=== PATIENT | female | born 1985 | race Caucasian/White ===

== ENCOUNTER 2023-11-08 08:56 | Day surgery (SDC) | payer BC ==
[~2023-11-08] VITALS: Ht 165.1 cm; Wt 71.2 kg
--- NOTE | 2023-11-08 08:55 | NUR ---
The patient was brought over to [facility] from the radiology department. The patient ambulated using a steady gait and appeared to tolerate the activity well. Vital signs obtained. Consent signed. Assessment completed. Home medications reconcilled. brought back to be at her bedside. Warm blanket provided. Denies any further needs at this time.
[~2023-11-08 08:56] MED LIST: AMOXICILLIN 8751 TAB PO; DEPO MEDROL40 MG/ML; DEPO-PROVER150 MG/M1; Famotidine 20 MG TAB PO SCH; LR 1,000 ML IV SCH; METRONIDAZOLE500 MG PO; NO HOME MEDICATIONS; NORCO 325 MG-51 TAB PO; NORCO 325 MG-7.1 TAB PO; PHENERGAN 25 TA25 MG PO; PHENERGAN25 MG RC; PREVACID 30MG30 M1 PO; PRISTIQ100 MG PO; PROTONIX 40MG T40 MG; STRATTERA18 MG PO; Scopolamine 1 MG Delivered 3-Day PATCH TD SCH; ZOFRAN ODT4 MG PO
--- NOTE | 2023-11-08 09:25 | NUR ---
The patient was taken via wheelchair to radiology to have further imaging completed. Will continue to monitor the patient when she returns to the unit.
[2023-11-08 10:13] VITALS: BP 106/76; PULSE 87; TEMP 98.3
[2023-11-08] MEDS ORDERED: fentaNYL 50 MCG/ML 2 ML VIAL ONE (10:25)
[2023-11-08] MEDS ORDERED: Rocuronium 50 MG/5 ML Multi-Dose VIAL ONE (10:25)
[2023-11-08] MEDS ORDERED: Ondansetron 4 MG/2 ML VIAL ONE (10:25)
[2023-11-08] MEDS ORDERED: ePHEDrine 50 MG/ML VIAL ONE (11:31)
[2023-11-08] MEDS ORDERED: Ondansetron 4 MG/2 ML VIAL IV PRN ×2 (12:00→13:15)
[2023-11-08] MEDS ORDERED: fentaNYL 50 MCG/ML 1 ML SYRINGE/VIAL [PACU/SDC ONLY] IV PRN (12:00)
[2023-11-08] MEDS ORDERED: HYDROmorphone 1 MG/1 ML SYRINGE [PACU/SDC ONLY] IV PRN (12:00)
[2023-11-08] MEDS ORDERED: hydrALAZINE 20 MG/ML 1 ML VIAL IV PRN (12:00)
[2023-11-08] MEDS ORDERED: NORCO 325 MG-51 TAB PO (13:11)
[2023-11-08] MEDS ORDERED: Ibuprofen 600 MG TAB PO PRN (13:15)
[2023-11-08 14:00] VITALS: BP 121/75; PULSE 98; TEMP 97.9
[2023-11-08 14:15] VITALS: BP 123/68; PULSE 80
[2023-11-08 14:30] VITALS: BP 113/77; PULSE 85
[2023-11-08 14:45] VITALS: BP 10/75; PULSE 85
--- NOTE | 2023-11-08 15:45 | NUR ---
1400-PT BAY 5 PER CART FROM PACU. REPORT RECEIVED. VS OBTAINED. CALL LIGHT WITHIN REACH. PT DENIES ANY NEEDS. 1410-PT AMBULATED TO RESTROOM WITH STANDBY ASSIST. PT VOIDED WITHOUT DIFFICULTY. 1415-PT TOLERATING ICE CHIPS WITHOUT DIFFICULTY. 1425-PT RESTING COMFORTABLY AND DENIES ANY NEEDS. 1450-PT RATES PAIN AT 5/10. NORCO 5/325 MG (1 TAB) AND MOTRIN 600 MG GIVEN AT THIS TIME. 1505-IV DC'D AT THIS TIME. 1515-DISCHARGE EDUCATION COMPLETED WITH PT AND HER . VERBALIZED UNDERSTANDING OF HOME AND FOLLOW UP CARE. ALL QUESTIONS ANSWERED. DISCHARGE PAPERWORK GIVEN TO PT. 1520-PT ABLE TO DRESS SELF WITH ASSISTANCE OF HER . 1545-PT OFF UNIT PER WHEELCHAIR. PT DISCHARGED TO HOME WITH HER PER PERSONAL VEHICLE.
[2023-11-08 17:18] VITALS: BP 121/78; PULSE 96; TEMP 97.2
== END 2023-11-08 15:45 | disposition home or self-care (01) ==
LOC: SDCO 08:56
DX: C43.61 Malignant melanoma of right upper limb, including shoulder (principal); K21.9 Gastro-esophageal reflux disease without esophagitis; Z85.828 Personal history of other malignant neoplasm of skin
CPT/HCPCS: A9520-JZ; J1170; J2405; J2704; J3010; J7120